=== PATIENT | female | born 1945 ===

== ENCOUNTER 2023-09-24 07:00 | Inpatient (IN) | payer OTHER ==
[2023-09-24] MEDS ORDERED: INDAPAMIDE1.25 MG PO (08:54)
[2023-09-24] MEDS ORDERED: FARXIGA10 MG (08:54)
[2023-09-24] MEDS ORDERED: SYNTHROID75 MCG PO (08:54)
[2023-09-24] MEDS ORDERED: COZAAR100 MG PO (08:55)
[2023-09-24] MEDS ORDERED: ACIDO FOLICO (08:55)
[2023-09-24] MEDS ORDERED: AMLODIPINE 5MG (08:56)
[2023-09-24 09:12] LABS: HEMATOCRIT 38.2 % (36.0-45.00); HEMOGLOBIN 12.8 g/dL (12.0-15.00); MEAN CELL VOLUME 79.8 fL (80.00-100.00); MEAN CORPUSCULAR HEMOGLOBIN 26.7 pg (27.00-32.0); MEAN CORPUSCULAR HGB CONC 33.5 g/dl (32.0-36.0); PLATELET COUNT 494 K/uL (150-450); RED BLOOD COUNT 4.79 M/uL (4.00-6.00); RED CELL DISTRIBUTION WIDTH 17.6 % (11.5-14.5)
[2023-09-24 09:16] LABS: URINE APPEARANCE Clear; URINE BILIRRUBIN Negative (NEGATIVE); URINE BLOOD Negative; URINE COLOR Yellow; URINE GLUCOSE Negative (NEGATIVE); URINE LEUKOCYTE Moderate; URINE NITRATE Negative; URINE PROTEIN Negative (NEGATIVE); URINE UROBILINOGEN 0.2 E.U./dl
[2023-09-24 09:22] LABS: URINE BACTERIA 1198.2 uL (0.0-1933); URINE RBC 5.7 uL (0.0-20.8); URINE WBC 97.9 uL (0.0-23.2)
[2023-09-24 09:46] LABS: ALBUMIN 3.6 gm/dL (3.4-5.0); BILIRUBIN TOTAL 0.29 mg/dL (0.3-1.2); CALCIUM 10.9 mg/dL (8.5-10.1); CREATININE SERUM 0.88 mg/dL (0.55-1.02); GFR 62.47; GLOBULINA 5.1 G/DL (2.4-3.5); POTASSIUM 4.29 mEq/L (3.5-5.1); TOTAL PROTEIN 8.7 gm/dL (6.4-8.2)
[2023-09-24 10:11] LABS: INR 1.01; PARTIAL THROMBOPLASTIN TIME 32.7 SECONDS (22.0-34.0); PROTHROMBIN TIME 10.6 SECONDS (9.0-11.5)
[2023-10-02] MEDS ORDERED: CEFAZOLIN SODIUM 1,000 MG VIAL ONE (06:22)
[2023-10-02] MEDS ORDERED: TRANEXAMIC ACID 100MG/1ML (1000MG) AMPUL IV ONE (06:22)
[2023-10-02] MEDS ORDERED: BUPIVACAINE HCL/PF 0.5% 30ML ML ONE (06:50)
[2023-10-02] MEDS ORDERED: LIDOCAINE HCL/EPINEPHRINE 10MG/ML 1% 50ML IJ ONE ×2 (06:50→08:30)
[2023-10-02] MEDS ORDERED: KETOROLAC TROMETHAMINE 60 MG VIAL IM ONE ×2 (06:50→08:30)
[2023-10-02] MEDS ORDERED: POVIDONE-IODINE 3 EA MED..SWAB TOP ONE (06:56)
[2023-10-02] MEDS ORDERED: VANCOMYCIN HCL 1,000 MG VIAL ONE (06:56)
[2023-10-02] MEDS ORDERED: AMLODIPINE BESYL5 MG (07:55)
[2023-10-02] MEDS ORDERED: ATORVASTATIN CA40 MG (07:55)
[2023-10-02] MEDS ORDERED: FOLIC ACID0.8 M1 (07:55)
[2023-10-02] MEDS ORDERED: ISOPROPYL ALCOHOL 30 ML OUNCE TOP ONE (08:30)
[2023-10-02] MEDS ORDERED: BUPIVACAINE HCL 30 ML VIAL IJ ONE (08:30)
[2023-10-02] MEDS ORDERED: POVIDONE-IODINE 118 ML BOTT TOP ONE (08:30)
[2023-10-02] MEDS ORDERED: VANCOMYCIN HCL 1,000 MG VIAL IR ONE (08:30)
[2023-10-02] MEDS ORDERED: CEFAZOLIN SODIUM 1,000 MG VIAL IV ONE (08:30)
[2023-10-02] MEDS ORDERED: ONDANSETRON HCL 2 MG/ML VIAL IV PRN (09:15)
[2023-10-02] MEDS ORDERED: MORPHINE SULFATE 4 MG/ML CARTRIDGE IV PRN (09:15)
[2023-10-02] MEDS ORDERED: SODIUM CHLORIDE 0.45 % 1,000 ML IV SCH (09:15)
[2023-10-02] MEDS ORDERED: OxyCODONE HCL 5 MG TABLET (ROXICODONE) PO PRN (09:15)
[2023-10-02] MEDS ORDERED: ACETAMINOPHEN 500 MG GEL..CAP PO SCH (12:00)
[2023-10-02] MEDS ORDERED: APIXABAN 2.5 MG TABLET PO SCH (17:00)
[2023-10-02] MEDS ORDERED: CEFAZOLIN SODIUM 1,000 MG VIAL IV SCH (17:00)
[2023-10-02] MEDS ORDERED: GABAPENTIN 300 MG CAPSULE PO SCH (17:00)
[2023-10-03 06:16] LABS: HEMOGLOBIN 10.9 g/dL (12.0-15.00); MEAN CELL VOLUME 80.9 fL (80.00-100.00); MEAN CORPUSCULAR HEMOGLOBIN 26.8 pg (27.00-32.0); MEAN CORPUSCULAR HGB CONC 33.2 g/dl (32.0-36.0); PLATELET COUNT 403 K/uL (150-450); RED BLOOD COUNT 4.07 M/uL (4.00-6.00); RED CELL DISTRIBUTION WIDTH 17.3 % (11.5-14.5)
[2023-10-03] MEDS ORDERED: ELIQUIS2.5 MG PO (07:56)
[2023-10-03] MEDS ORDERED: PERCOCET 5-3251 EACH PO (07:56)
[2023-10-03] MEDS ORDERED: DUI500 PO (07:56)
[2023-10-03] MEDS ORDERED: SENNOSIDES 1 TAB TABLET PO SCH (09:00)
[2023-10-03] MEDS ORDERED: AMLODIPINE BESYLATE 5 MG TABLET PO SCH (11:16)
[2023-10-03] MEDS ORDERED: LOSARTAN POTASSIUM 100 MG TABLET PO SCH (11:16)
[2023-10-03] MEDS ORDERED: VITAMIN B COMPLEX 1 EACH PO SCH (13:57)
[2023-10-03] MEDS ORDERED: SOD FERRIC GLUC COMPLX/SUCROSE 62.5 MG/5 ML AMPUL IV SCH (13:58)
[2023-10-03] MEDS ORDERED: Cyanocobalamin/Mecobalamin 1 TAB.SL SL SCH (13:58)
[2023-10-04] MEDS ORDERED: LEVOTHYROXINE SODIUM 75 MCG TABLET PO SCH (06:00)
[2023-10-04 06:18] LABS: HEMATOCRIT 30.5 % (36.0-45.00); HEMOGLOBIN 10.2 g/dL (12.0-15.00); MEAN CELL VOLUME 79.8 fL (80.00-100.00); MEAN CORPUSCULAR HEMOGLOBIN 26.6 pg (27.00-32.0); MEAN CORPUSCULAR HGB CONC 33.4 g/dl (32.0-36.0); PLATELET COUNT 347 K/uL (150-450); RED BLOOD COUNT 3.82 M/uL (4.00-6.00)
[2023-10-04] MEDS ORDERED: IRON FUM,PS/FOLIC ACID/VITC/B3 1 CAP CAPSULE PO SCH (09:00)
== END 2023-10-04 17:50 | DRG 470 ==
LOC: O/R 10-02 05:09 → SURH 10-02 07:00 → SURG 10-02 10:07 → SURH 10-02 14:15 → SURG 10-04 17:50
PROVIDERS: ADMIT Orthopaedic Surgery; ATTEND Orthopaedic Surgery
PROC: 0MNN0ZZ Release Right Knee Bursa and Ligament, Open Approach (ICD-10-PCS; 2023-10-02)
PROC: 0SRC0J9 Replacement of Right Knee Joint with Synthetic Substitute, Cemented, Open Approach (ICD-10-PCS; principal; 2023-10-02 14:15)
DX: M17.11 Unilateral primary osteoarthritis, right knee (principal); D62 Acute posthemorrhagic anemia; M22.11 Recurrent subluxation of patella, right knee; I10 Essential (primary) hypertension